=== PATIENT | female | born 1990 | race Caucasian/White ===

== ENCOUNTER 2017-01-29 10:16 | Emergency (ER) | payer OTHER ==
[2017-01-29 10:33] VITALS: BP 120/59
--- NOTE | 2017-01-29 11:09 | UC ---
Abdominal Pain Female HPI - HPI Summary HPI Summary: ONSET OF LOWER ABDOMINAL PAIN AND CRAMPING LAST NIGHT. FEELS BLOATED. IS CURRENTLY ON DAY 5 OF MENSES BUT STATES THIS DOES NOT FEEL LIKE DYSMENORRHEA. IS C/O BRBPR - DRIPPING INTO TOILET BOWL WHEN SHE TRIES TO HAVE A BM. IS CONSTIPATED GENERALLY AND HAD A SMALL HARD BM YESTERDAY, BUT ALSO HAD SOME MINIMAL WATERY STOOL LAST NIGHT. NO FEVER. DENIES ANY ANAL PENETRATIVE ACTIVITIES. - History of Current Complaint Chief Complaint: UCAbdominalPain Stated Complaint: ABDOMINAL PAIN Time Seen by Provider: 01/29/17 11:05 Hx Obtained From: Patient, Family/Bobbin Drier - MOM Hx Last Menstrual Period: 01/26/17 Onset/Duration: Sudden Onset, Lasting Hours Timing: Constant Severity Initially: Moderate Severity Currently: Severe Pain Intensity: 10 - IN ROOM IN NO ACUTE DISTRESS Pain Scale Used: 0-10 Numeric Location: Other - LOWER ABDOMEN Radiates: No Character: Cramping, Sharp Aggravating Factor(s): Nothing Alleviating Factor(s): Nothing Associated Signs and Symptoms: Positive: Nausea Allergies/Adverse Reactions: Allergies Allergy/AdvReac Type Severity Reaction Status Date / Time Penicillins [PCN] Allergy Unknown Unknown Verified 08/09/13 12:32 Reaction Details PMH/Surg Hx/FS Hx/Imm Hx Psychological History: Anxiety, Depression - Surgical History Surgical History: Yes Surgery Procedure, Year, and Place: 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) - Family History Known Family History: Positive: Other Negative: Hypertension Family History: NO FAM HX OF COLON CANCER - Social History Alcohol Use: Occasionally Alcohol Amount: Beer 3x/week, social ETOH Substance Use Type: Marijuana Substance Use Comment - Amount & Last Used: occasional Smoking Status (MU): Light Every Day Tobacco Smoker Type: Cigarettes Amount Used/How Often: 2 cigarettes per month Review of Systems Constitutional: Negative Respiratory: Negative Cardiovascular: Negative Gastrointestinal: Abdominal Pain, Nausea, Other - RECTAL BLEEDING Genitourinary: Negative All Other Systems Reviewed And Are Negative: Yes Physical Exam Triage Information Reviewed: Yes Appearance: Well-Appearing, No Pain Distress, Well-Nourished Vital Signs: Initial Vital Signs Temp 97.9 F 01/29/17 10:27 Pulse 64 01/29/17 10:27 Resp 18 01/29/17 10:27 BP 120/59 01/29/17 10:27 Pulse Ox 100 01/29/17 10:27 Vital Signs Reviewed: Yes Eyes: Positive: Conjunctiva Clear ENT: Positive: Hearing grossly normal Neck: Positive: Supple Respiratory Exam: Normal Cardiovascular Exam: Normal Abdomen Description: Positive: Soft, Other: - TTP ACROSS LOWER ABDOMEN LEFT> RIGHT. NO REBOUND. NOT TENDER TO PERCUSSION. NEG PSOAS AND NEG OBTURATOR. Negative: CVA Tenderness (R), CVA Tenderness (L), Distended, Guarding Bowel Sounds: Positive: Present Musculoskeletal: Positive: No Edema Neurological: Positive: Alert Psychological: Positive: Age Appropriate Behavior Skin: Negative: rashes UC Physical Exam Vital Signs On Initial Exam: Initial Vitals Temp Pulse Resp BP Pulse Ox 97.9 F 64 18 120/59 100 01/29/17 10:27 01/29/17 10:27 01/29/17 10:27 01/29/17 10:27 01/29/17 10:27 - Rectal Exam Rectal Exam: Normal Rectal Tone, Non-tender, Heme Positive Stool, Hemorrhoids - VERY SMALL NON TENDER, NON THROMBOSED EXTERNAL HEMORRHOID Diagnostics - Laboratory Diagnostic Studies Completed/Ordered: URINE DIP SP. GR. 1.015, 2+ BLOOD (PT ON MENSES). POSITIVE HEMOCCULT (DEMETRIO) Abd Pain Female Course/Dx - Course Course Of Treatment: CALLED GI FOR FOLLOW-UP BUT THEY DO NOT ACCEPT PT INSURANCE. WILL SEND TO DR. WASHINGTON (GEN SURG) TODAY AT 3PM. - Differential Dx/Diagnosis Provider Diagnoses: 1. RECTAL BLEEDING. 2. LOWER ABDOMINAL PAIN, NOS Discharge - Discharge Plan Condition: Stable Disposition: HOME Patient Education Materials: Rectal Bleeding (ED), Abdominal Pain (ED) Referrals: Eli Lombardi MD [Primary Care Provider] - If Needed Vladimir Washington MD [Medical Doctor] - (APPT TODAY AT 3PM) Additional Instructions: POSITIVE FOR BLOOD ON RECTAL EXAM TODAY. GO TO DR. SANTOYO'S OFFICE FOR AN APPT TODAY AT 3PM. THEY ARE EXPECTING YOU. TYLENOL FOR ABDOMINAL PAIN. AVOID NSAIDS FOR NOW.
== END 2017-01-29 11:59 | disposition home or self-care (01) ==
LOC: UCEAST 10:16
DX: K62.5 Hemorrhage of anus and rectum (principal); R10.30 Lower abdominal pain, unspecified; Z32.02 Encounter for pregnancy test, result negative; Z72.0 Tobacco use
CPT/HCPCS: 81003; 84702; 99211; G0463

== ENCOUNTER 2017-01-29 20:04 | Emergency (ER) | payer OTHER ==
[2017-01-29 22:36] LABS: Urine Bacteria Absent (Absent); Urine Bilirubin Negative (Negative); Urine Glucose Negative (Negative); Urine Nitrite Negative (Negative)
[2017-01-29 23:05] LABS: Hematocrit 38 % (35-47); Hemoglobin 12.8 g/dl (12.0-16.0); Mean Corpuscular HGB Conc 33 g/dl (31-36); Mean Corpuscular Hemoglobin 28 pg (27-31); Mean Corpuscular Volume 83 fL (80-97); Mean Platelet Volume 9 um3 (7.4-10.4); Red Blood Count 4.62 10^6/ul (4.0-5.4); Red Cell Distribution Width 13 % (10.5-15); White Blood Count 7.8 10^3/ul (3.5-10.8)
[2017-01-29 23:21] LABS: ALT 8 U/L (7-52); AST 13 U/L (13-39); Alkaline Phosphatase 54 U/L (34-104); Amylase 31 U/L (29-103); Anion Gap 5 mmol/L (2-11); Blood Urea Nitrogen 6 mg/dL (6-24); C Reactive Protein 5.74 mg/L (< 5.00); CO2 Carbon Dioxide 28 mmol/L (22-32); Calcium 8.9 mg/dL (8.6-10.3); Chloride 105 mmol/L (101-111); Creatine Kinase 26 U/L (10-223); EGFR African American 135.8 (>60); EGFR Non-African American 105.6 (>60); Globulin 2.5 g/dL (2-4); Glucose 81 mg/dL (70-100); Lipase 12 U/L (11.0-82.0); Magnesium 2.1 mg/dL (1.9-2.7); Potassium 3.8 mmol/L (3.5-5.0); Sodium 138 mmol/L (133-145); Total Protein 6.5 g/dL (6.4-8.9)
[2017-01-29] MEDS ORDERED: Morphine INJ* 4 MG/ML 1 ML CARPUJECT IV ONE (23:27)
[2017-01-29] MEDS ORDERED: Ondansetron INJ* 2 MG/ML VIAL IV ONE (23:27)
[2017-01-29] MEDS ORDERED: NS 0.9% 1000 ML* 1,000 ML IV ONE (23:44)
[2017-01-30 02:06] VITALS: BP 109/59
--- NOTE | 2017-01-30 16:07 | ED ---
Alvarado Jiang Alfonso, scribed for Irene Campbell MD on 01/29/17 at 2234 . Abdominal Pain/Female - HPI Summary HPI Summary: This patient is a 26 year old F presenting referred from [facility] to [facility] accompanied by mother with a chief complaint of abdominal pain since yesterday night, worse since 0300 today. The patient rates the cramping and aching pain 9/ 10 in severity. Symptoms aggravated by nothing. Symptoms alleviated by Tylenol/ Codeine earlier today. Patient reports rectal bleeding (every time I wipe for the last year.), constipation (2 years), jaw clenching, dizziness (woozy like I am in a fish tank), and a cold (4 days). Patient denies vomiting. She takes ibuprofen often. She is currently on her menstrual cycle.Pt was evaluated at urgent care earlier today and an appt was made for her with surgery , but pt decided she wanted to pursue GI follow up with her PCP, since GI at [facility] [place] not covered by her insurance. Pt did not want to go to a surgeon. When pain continued and got more severe she came to the ED. - History of Current Complaint Chief Complaint: EDAbdPain Stated Complaint: ABD PAIN,DISORIENTED-WAS AT EARLIER TODAY Time Seen by Provider: 01/29/17 22:13 Hx Obtained From: Patient Hx Last Menstrual Period: 01/26/17 Onset/Duration: Sudden Onset, Lasting Days, Still Present, Worse Since - 0300 Timing: Constant Severity Currently: Severe Pain Intensity: 9 Pain Scale Used: 0-10 Numeric Character: Dull Aggravating Factor(s): Nothing Alleviating Factor(s): Other: - Tylenol/Codeine Associated Signs and Symptoms: Positive: Other: - rectal bleeding (every time I wipe for the last year.), constipation (2 years), jaw clenching, dizziness ( woozy like I am in a fish tank), and a cold (4 days). Patient denies vomiting. 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) Infectious Disease History: No Infectious Disease History: Denies: History Other Infectious Disease, Traveled Outside the [place] in Last 30 Days - Family History Known Family History: Positive: Other - Celiac's disease (mother) Negative: Hypertension Family History: NO FAM HX OF COLON CANCER - Social History Alcohol Use: Occasionally Alcohol Amount: Beer 3x/week, social ETOH Hx Substance Use: No Substance Use Type: Reports: None Substance Use Comment - Amount & Last Used: occasional Hx Tobacco Use: No Smoking Status (MU): Never Smoked Tobacco Type: Cigarettes Amount Used/How Often: 2 cigarettes per month Review of Systems Positive: Other - "a cold" Positive: Other - jaw clenching Positive: Abdominal Pain, Other - rectal bleeding (every time I wipe for the last year.), constipation (2 years). Negative: Vomiting Neurological: Other - Dizziness All Other Systems Reviewed And Are Negative: Yes Physical Exam Triage Information Reviewed: Yes Vital Signs On Initial Exam: Initial Vitals Temp Pulse Resp BP Pulse Ox 97.0 F 88 20 133/65 100 01/29/17 20:07 01/29/17 20:07 01/29/17 20:07 01/29/17 20:07 01/29/17 20:07 Vital Signs Reviewed: Yes Appearance: Positive: Well-Appearing, Well-Nourished, Pain Distress Skin: Positive: Warm, Skin Color Reflects Adequate Perfusion, Other - Red modeling from a heating pad at umbilicus Head/Face: Positive: Normal Head/Face Inspection Eyes: Positive: Conjunctiva Clear ENT: Positive: Normal ENT inspection Neck: Positive: Supple Respiratory/Lung Sounds: Positive: Clear to Auscultation, Breath Sounds Present , Other - No respiratory distress Cardiovascular: Positive: RRR, Pulses are Symmetrical in both Upper and Lower Extremities, Other - Brisk capillary refill. Negative: Murmur Abdomen Description: Positive: Soft, Other: - Mild diffuse tenderness Bowel Sounds: Positive: Present Musculoskeletal: Positive: Strength/ROM Intact Neurological: Positive: Sensory/Motor Intact, Alert, Oriented to Person Place, Time, CN Intact II-III - II-XII Psychiatric: Positive: Normal Diagnostics - Vital Signs Vital Signs Temp Pulse Resp BP Pulse Ox 01/29/17 22:00 68 133/114 99 01/29/17 21:30 75 100 01/29/17 21:27 108/67 01/29/17 20:07 97.0 F 88 20 133/65 100 - Laboratory Lab Results: Lab Results 01/29/17 01/29/17 01/29/17 Range/Units 22:20 22:56 22:56 WBC 7.8 (3.5-10.8) 10^3/ul RBC 4.62 (4.0-5.4) 10^6/ul Hgb 12.8 (12.0-16.0) g/dl Hct 38 (35-47) % MCV 83 (80-97) fL MCH 28 (27-31) pg MCHC 33 (31-36) g/dl RDW 13 (10.5-15) % Plt Count 217 (150-450) 10^3/ul MPV 9 (7.4-10.4) um3 Neut % (Auto) 64.1 (38-83) % Lymph % (Auto) 24.4 L (25-47) % [place] % (Auto) 7.8 (1-9) % Eos % (Auto) 1.1 (0-6) % Baso % (Auto) 2.6 H (0-2) % Absolute Neuts (auto) 5.0 (1.5-7.7) 10^3/ul Absolute Lymphs (auto) 1.9 (1.0-4.8) 10^3/ul Absolute Monos (auto) 0.6 (0-0.8) 10^3/ul Absolute Eos (auto) 0.1 (0-0.6) 10^3/ul Absolute Basos (auto) 0.2 (0-0.2) 10^3/ul Absolute Nucleated RBC 0 10^3/ul Nucleated RBC % 0 INR (Anticoag Therapy) (0.89-1.11) Sodium 138 (133-145) mmol/L Potassium 3.8 (3.5-5.0) mmol/L Chloride 105 (101-111) mmol/L Carbon Dioxide 28 (22-32) mmol/L Anion Gap 5 (2-11) mmol/L BUN 6 (6-24) mg/dL Creatinine 0.67 (0.51-0.95) mg/dL Est GFR ( Amer) 135.8 (>60) Est GFR (Non-Af Amer) 105.6 (>60) BUN/Creatinine Ratio 9.0 (8-20) Glucose 81 (70-100) mg/dL Lactic Acid (0.5-2.0) mmol/L Calcium 8.9 (8.6-10.3) mg/dL Magnesium 2.1 (1.9-2.7) mg/dL Total Bilirubin 0.40 (0.2-1.0) mg/dL AST 13 (13-39) U/L ALT 8 (7-52) U/L Alkaline Phosphatase 54 (34-104) U/L Total Creatine Kinase 26 (10-223) U/L C-Reactive Protein 5.74 H (< 5.00) mg/L Total Protein 6.5 (6.4-8.9) g/dL Albumin 4.0 (3.2-5.2) g/dL Globulin 2.5 (2-4) g/dL Albumin/Globulin Ratio 1.6 (1-3) Amylase 31 (29-103) U/L Lipase 12 (11.0-82.0) U/L Beta HCG, Quant < 0.60 mIU/mL Urine Color Yellow Urine Appearance Clear Urine pH 6.0 (5-9) Ur Specific [place] 1.011 (1.010-1.030) Urine Protein Negative (Negative) Urine Ketones Negative (Negative) Urine Blood 1+ H (Negative) Urine Nitrate Negative (Negative) Urine Bilirubin Negative (Negative) Urine Urobilinogen Negative (Negative) Ur Leukocyte Esterase Negative (Negative) Urine WBC (Auto) Trace(0-5/hpf) (Absent) Urine RBC (Auto) Trace(0-2/hpf) (Absent) Ur Squamous Epith Cells Present H (Absent) Urine Bacteria Absent (Absent) Urine Glucose Negative (Negative) 01/29/17 01/29/17 Range/Units 22:56 22:56 WBC (3.5-10.8) 10^3/ul RBC (4.0-5.4) 10^6/ul Hgb (12.0-16.0) g/dl Hct (35-47) % MCV (80-97) fL MCH (27-31) pg MCHC (31-36) g/dl RDW (10.5-15) % Plt Count (150-450) 10^3/ul MPV (7.4-10.4) um3 Neut % (Auto) (38-83) % Lymph % (Auto) (25-47) % [place] % (Auto) (1-9) % Eos % (Auto) (0-6) % Baso % (Auto) (0-2) % Absolute Neuts (auto) (1.5-7.7) 10^3/ul Absolute Lymphs (auto) (1.0-4.8) 10^3/ul Absolute Monos (auto) (0-0.8) 10^3/ul Absolute Eos (auto) (0-0.6) 10^3/ul Absolute Basos (auto) (0-0.2) 10^3/ul Absolute Nucleated RBC 10^3/ul Nucleated RBC % INR (Anticoag Therapy) 1.00 (0.89-1.11) Sodium (133-145) mmol/L Potassium (3.5-5.0) mmol/L Chloride (101-111) mmol/L Carbon Dioxide (22-32) mmol/L Anion Gap (2-11) mmol/L BUN (6-24) mg/dL Creatinine (0.51-0.95) mg/dL Est GFR ( Amer) (>60) Est GFR (Non-Af Amer) (>60) BUN/Creatinine Ratio (8-20) Glucose (70-100) mg/dL Lactic Acid 0.6 (0.5-2.0) mmol/L Calcium (8.6-10.3) mg/dL Magnesium (1.9-2.7) mg/dL Total Bilirubin (0.2-1.0) mg/dL AST (13-39) U/L ALT (7-52) U/L Alkaline Phosphatase (34-104) U/L Total Creatine Kinase (10-223) U/L C-Reactive Protein (< 5.00) mg/L Total Protein (6.4-8.9) g/dL Albumin (3.2-5.2) g/dL Globulin (2-4) g/dL Albumin/Globulin Ratio (1-3) Amylase (29-103) U/L Lipase (11.0-82.0) U/L Beta HCG, Quant mIU/mL Urine Color Urine Appearance Urine pH (5-9) Ur Specific [place] (1.010-1.030) Urine Protein (Negative) Urine Ketones (Negative) Urine Blood (Negative) Urine Nitrate (Negative) Urine Bilirubin (Negative) Urine Urobilinogen (Negative) Ur Leukocyte Esterase (Negative) Urine WBC (Auto) (Absent) Urine RBC (Auto) (Absent) Ur Squamous Epith Cells (Absent) Urine Bacteria (Absent) Urine Glucose (Negative) Result Diagrams: 01/29/17 22:56 01/29/17 22:56 Lab Statement: Any lab studies that have been ordered have been reviewed, and results considered in the medical decision making process. Abdominal Pain Fem Course/Dx - Course Course Of Treatment: This patient is a 26 year old F presenting referred from [facility] to [facility] accompanied by mother with a chief complaint of abdominal pain since yesterday night, worse since 0300 today. The patient rates the cramping and aching pain 9/10 in severity. Symptoms aggravated by nothing. Symptoms alleviated by Tylenol/Codeine earlier today. Patient reports rectal bleeding ( every time I wipe for the last year.), constipation (2 years), jaw clenching, dizziness (woozy like I am in a fish tank), and a cold (4 days). Patient denies vomiting. She takes ibuprofen often. She is currently on her menstrual cycle. Patients medications reviewed this visit. In the ED course the patient was given Morphine and Zofran. Patient will be discharged with follow up from PCP. The patient is agreeable with this plan. Discharge - Discharge Plan Condition: Stable Disposition: HOME Prescriptions: HYDROcodone/ACETAMIN 5-325 MG* [[place] 5-325 TAB*] 1 tab PO Q8H PRN #5 tab MDD 3 PRN Reason: Pain Patient Education Materials: Rectal Bleeding (ED), Acute Abdominal Pain (ED) Referrals: Eli Stern MD [Primary Care Provider] - 2 Days Additional Instructions: Your labs were unremarkable tonight. You are not anemic. We gave you a copy of your labs. We gave you IV fluids for your dizziness which resolved. We gave you morphine 4mg IV and ondansetron 4mg IV for pain and nausea. You declined CT at this time due to radiation exposure and will follow up with Dr. Stern who will arrange GI follow up for you. We have prescribed hydrocodone with acetaminophen (tylenol) in it. Take this cautiously as it is addictive. You may safely take up to 4 grams of acetaminophen (tylenol) daily for pain. Try to get more fiber in your diet, with miralax or metamucil. Drink lots of fluids. Try a stool softener such as colace. Do not take ibuprofen, aspirin or aleve until advised by your doctor. Return to the ER if you have new or worsening symptoms. The documentation as recorded by the Alvarado squires Alfonso accurately reflects the service I personally performed and the decisions made by me, Irene Campbell MD.
== END 2017-01-30 02:00 | disposition home or self-care (01) ==
LOC: ED 20:04
DX: R10.9 Unspecified abdominal pain (principal); R42 Dizziness and giddiness
CPT/HCPCS: 36415; 80053; 81003; 81015; 82150; 82550; 83605; 83690; 83735; 84702; 85025; 85610; 86140; 96374; 96375; 99284; J2270; J2405